=== PATIENT | male | born 1935 | race Caucasian/White ===

== ENCOUNTER → 2016-11-08 | Day surgery (SDC) | payer OTHER ==
[~2016-11-08] VITALS: Ht 170.2 cm; Wt 108.0 kg
[~2016-11-08] MED LIST: ASPI1TAB PO; BUPIVACAINE/EPIN 0.25% 30 ML VIAL As Ordered ONE; FINA5TAB2 PO; FISH1000 PO; FLOM5CAP PO; GLYCOPYRROLATE INJ 0.2 MG/ML 2 ML VIAL As Ordered ONE; K-TA10TA2 PO; LIDOCAINE 2% INJ 100 MG/5 ML SDV (FOR ANES.) As Ordered ONE; LISI10TA4 PO; LR 1,000 ML IV SCH; MIDAZOLAM INJ 2 MG/2 ML VIAL (J2250) As Ordered ONE; MORPHINE 2 MG/ML 1ML SYRINGE IV PRN; MYRB50TA PO; NEOSTIGMINE 1MG/ML 5 ML SYRINGE (J2710) As Ordered ONE; NORCO, ANEXSIA 5/325MG TABLET (HYDROcodone/ACETAMINOPHEN) As Ordered ONE; NORCO, ANEXSIA 5/325MG TABLET (HYDROcodone/ACETAMINOPHEN) PO PRN; OMEP10CASR PO; ONDANSETRON 4MG/2ML VIAL (J2405) As Ordered ONE; ONDANSETRON 4MG/2ML VIAL (J2405) IV PRN; PROPOFOL 200 MG/20 ML VIAL As Ordered ONE; ROCURONIUM BROMIDE 50 MG/5 ML VIAL As Ordered ONE; STOO100C PO; SUGAMMADEX SODIUM 500 MG/5 ML VIAL (BRIDION) As Ordered ONE; ZOCO10TA PO; ceFAZolin SOD 1 GM in D5W MINI-BAG PLUS 50 ML IV ONE; dexameTHASONE 4 MG/ML 1ML VIAL (J1100) As Ordered ONE; fentaNYL 100 MCG/2 ML INJECTION (J3010) IV PRN; fentaNYL 250 MCG/5 ML INJECTION (J3010) As Ordered ONE
[2016-11-08 12:30] VITALS: BP 173/89
--- NOTE | 2016-11-14 08:36 | RO ---
DATE OF PROCEDURE: 11/08/2016 PREOPERATIVE DIAGNOSIS: Left inguinal hernia. POSTOPERATIVE DIAGNOSIS: Left inguinal hernia. PROCEDURE: Laparoscopic left inguinal hernia repair with 3-D Max mesh (TEPP). SURGEON: Dr. Derrick Swartz. DRY TALC RACKER: ANESTHESIA: General endotracheal anesthesia. ESTIMATED BLOOD LOSS: Minimal. FLUIDS: Crystalloid. BRIEF PROCEDURE SUMMARY: The patient was brought to the operating room and was given general anesthesia. After adequate anesthesia and preoperative antibiotics were given, the patient was prepped and draped in usual sterile fashion. Next a periumbilical incision was made with a skin knife. Electrocautery was used to cut through dermis, underlying subcutaneous tissue down to the anterior rectus muscle fascia. The anterior rectus muscle fascia was incised longitudinally and the rectus muscle was retracted laterally and anteriorly. The balloon dissector was placed in the preperitoneal space and dilated under direct visualization. Next a stationary balloon was placed in the preperitoneal space, insufflated and then the preperitoneal space insufflated to 15 mm of pressure. Two 5 mm trocars were placed at this time and under direct visualization, the loose areolar tissue on the backside of pubis, Sandor's ligament were taken down with hook cautery. A valley between the vessels and the bladder was taken down with hook cautery as well. Then bluntly dissecting lateral to the inguinal ligament, the dissection continued from lateral to medial to where the peritoneum was well visualized going into the internal ring. This was dissected off cord structures using blunt dissection as well as electrocautery on loose areolar tissue in this area. Eventually once the peritoneum was well mobilized off the cord structures, this was delivered out of the inguinal canal with combination of blunt dissection and the electrocautery on some minimal attachments. Eventually this was mobilized out of the inguinal canal and off the cord structures to where the Vas dove deep into the pelvis. Once a good operative field was dissected free, the 3-D Max mesh was placed in the preperitoneal space tacked in at Sandor's The medial aspect on the pubis as well as the tail was tacked with AbsorbaTack. There was some redundancy to the mesh itself so that the mesh was tacked anteriorly onto the rectus muscle as well. The peritoneum was allowed to return back into the preperitoneal space after desufflation of the preperitoneal space and all trocars were removed under direct visualization. #0 Vicryl was used to close the fascia at the umbilicus and all incisions were closed with #4-0 Vicryl. Steri-Strips and a dry sterile dressing was applied. The patient was awakened, extubated, brought to the recovery room awake, alert and hemodynamically stable. Sponge and needle counts correct times two.
== END | disposition home or self-care (01) ==
LOC: M SDC 06:54
PROVIDERS: ATTEND Surgery
DX: K40.90 Unilateral inguinal hernia, without obstruction or gangrene, not specified as recurrent (principal); I10 Essential (primary) hypertension; K21.9 Gastro-esophageal reflux disease without esophagitis; H40.9 Unspecified glaucoma; R01.1 Cardiac murmur, unspecified; E78.00 Pure hypercholesterolemia, unspecified; E53.9 Vitamin B deficiency, unspecified; H50.00 Unspecified esotropia; R31.9 Hematuria, unspecified; K44.9 Diaphragmatic hernia without obstruction or gangrene; E78.5 Hyperlipidemia, unspecified; R73.01 Impaired fasting glucose; H54.2 Low vision, both eyes; I35.9 Nonrheumatic aortic valve disorder, unspecified; R00.1 Bradycardia, unspecified; M17.0 Bilateral primary osteoarthritis of knee; Z88.0 Allergy status to penicillin; Z79.899 Other long term (current) drug therapy; Z79.82 Long term (current) use of aspirin; Z87.891 Personal history of nicotine dependence; Z96.653 Presence of artificial knee joint, bilateral; Z96.1 Presence of intraocular lens
CPT/HCPCS: 49650; C1781; J0690; J1100; J2250; J2405; J3010